=== PATIENT | female | born 1990 | race Two or more races ===

== ENCOUNTER 2020-10-13 13:18 | Emergency (ER) | payer OTHER ==
[~2020-10-13] VITALS: Ht 160 cm; Wt 73.5 kg
[2020-10-13 14:04] VITALS: BP 114/71
[2020-10-13] MEDS ORDERED: traMADol HCL 50 MG TAB PO ONE (15:15)
[2020-10-13] MEDS ORDERED: ONDANSETRON ODT 4 MG TAB PO ONE (15:15)
== END 2020-10-13 15:53 | disposition home or self-care (01) ==
LOC: ER 13:18
DX: S16.1XXA Strain of muscle, fascia and tendon at neck level, initial encounter (principal); S09.90XA Unspecified injury of head, initial encounter; W22.8XXA Striking against or struck by other objects, initial encounter; Y93.89 Activity, other specified; Y92.89 Other specified places as the place of occurrence of the external cause; Y99.8 Other external cause status
CPT/HCPCS: 70450; 72040; 99284; Q0162